=== PATIENT | female | born 1995 | race Two or more races ===

== ENCOUNTER → 2018-01-18 | Emergency (ER) | payer OTHER ==
[~2018-01-18] VITALS: Ht 165.1 cm; Wt 90.7 kg
[~2018-01-18] MED LIST: AMOX-CLAV 875-1 EACH PO; INTESTINEX680 M1 PO
== END | disposition home or self-care (01) ==
LOC: ER 19:55
DX: S90.211A Contusion of right great toe with damage to nail, initial encounter (principal); W22.8XXA Striking against or struck by other objects, initial encounter; Y93.89 Activity, other specified; Y92.89 Other specified places as the place of occurrence of the external cause; Y99.8 Other external cause status; S91.241A Puncture wound with foreign body of right great toe with damage to nail, initial encounter

== ENCOUNTER 2023-06-14 18:21 | Emergency (ER) | payer OTHER ==
[~2023-06-14] VITALS: Ht 165.1 cm; Wt 108.9 kg
[2023-06-14] MEDS ORDERED: FAMOTIDINE/PF 20 MG in 0.9 % SODIUM CHLORIDE 8 ML IV PUSH STA (19:00)
[2023-06-14] MEDS ORDERED: 0.9 % SODIUM CHLORIDE 1,000 ML IV STA (19:00)
[2023-06-14 19:37] LABS: HEMATOCRIT 45.2 % (36.0-45.00); HEMOGLOBIN 15.6 g/dL (12.0-15.00); MEAN CELL VOLUME 89.2 fL (80.00-100.00); MEAN CORPUSCULAR HEMOGLOBIN 30.7 pg (27.00-32.0); MEAN CORPUSCULAR HGB CONC 34.5 g/dl (32.0-36.0); PLATELET COUNT 178 K/uL (150-450); RED BLOOD COUNT 5.07 M/uL (4.00-6.00); RED CELL DISTRIBUTION WIDTH 13.3 % (11.5-14.5)
[2023-06-14 20:08] LABS: CREATININE SERUM 0.85 mg/dL (0.55-1.02); GFR 80.23; POTASSIUM 3.97 mEq/L (3.5-5.1)
[2023-06-14] MEDS ORDERED: METRONIDAZOLE/SODIUM CHLORIDE 500 MG/100 ML PIGGYBACK IV STA (21:41)
[2023-06-14] MEDS ORDERED: CIPROFLOXACIN IN 5 % DEXTROSE 400 MG/200 ML PIGGYBAG IV STA (21:42)
== END 2023-06-15 00:12 | disposition home or self-care (01) ==
LOC: ER 18:22
PROVIDERS: Emergency Medicine
DX: K52.89 Other specified noninfective gastroenteritis and colitis (principal); Z88.6 Allergy status to analgesic agent